=== PATIENT | female | born 1970 | race Caucasian/White ===

== ENCOUNTER 2016-10-02 17:46 | Emergency (ER) ==
--- NOTE | 2016-10-02 18:38 | PROVIDER DOCUMENTATION ---
Addendum entered and electronically signed by Mitchell Matute Scribe 10/02/16 19:30 : Progress - PLAN OF CARE/RESULTS Progress/Plan/Lab Results: Orders Category Date Time Status CHEST-2 VIEWS [RAD] Stat Exams 10/02/16 18:31 Taken CephALEXIN [Keflex] Med 10/02/16 19:16 Discontinued 500 mg PO NOW ONE Vital Signs - 24 hr 10/02/16 17:51 Temperature 99 F Pulse Rate 86 Respiratory 18 Rate Blood Pressure 112/63 O2 Sat by Pulse 99 Oximetry - XRAY XRAY: Bilateral XRAY Study: Chest XRAY Interpretation: NEGATIVE Original Note: HPI-General Adult - General Source: patient - History of Present Illness -Gen Adult Nature of Presenting Problems: 46 YOWF PRESENTS TO ED WITH C/O PT STATES SHE HAD SURGERY ON WEDNESDAY, AND WAS HOARSE WHEN SHE CAME OUT OF SURGERY. PT STATES SHE GOT BETTER ON WEDNESDAY, AND NOW STATES SHE HAS HOARSENESS AGAIN. Location of Pain/Injury: reports: none Pain Radiation: reports: no radiation Quality of Pain: reports: none Severity: reports: moderate Onset/Duration: reports: 2 days ago Timing: reports: still present Context/Activities at Onset: reports: light activity Modifying Factors: improves with: nothing Similar Symptoms Previously?: No Recently seen or treated by another doctor?: No <Mitchell Matute - Last Filed: 10/02/16 18:33> <Mello Forman - Last Filed: 10/02/16 19:18> - General Chief Complaint: Post Op Complaint Stated Complaint: POSS PNEUMONIA/POST OP Time Seen by Provider: 10/02/16 18:33 Allergies/Adverse Reactions: Patient Allergies Allergy/AdvReac Type Severity Reaction Status Date / Time metronidazole [From Flagyl] Allergy Mild RASH Verified 08/18/14 08:36 Metronidazole HCl * Allergy Mild RASH Verified 08/18/14 08:36 [From Flagyl] Penicillins Allergy Mild RASH Verified 08/18/14 08:36 red dye Allergy HIVES Verified 08/18/14 08:36 Home Medications: Home Medication List Medication Instructions Recorded Confirmed Last Taken Type Topiramate [Topamax] 200 mg PO BID 04/18/12 08/18/14 08/17/14 History Trazodone [Desyrel] 200 mg PO QHS 0908/18/14 08/17/14 History Bupropion HCl [Bupropion Xl] 300 mg PO DAILY 11/23/13 08/18/14 08/17/14 History Pantoprazole [Protonix] 40 mg PO DAILY@0700 11/23/13 08/18/14 08/17/14 History Promethazine [Phenergan] 25 mg NC Q6H PRN PRN 11/23/13 08/18/14 08/17/14 History Sumatriptan Succinate [Sumavel 6 mg SQ PRN PRN 11/23/13 08/18/14 08/17/14 History Dosepro] Tramadol [Ultram] 50 mg PO Q6H PRN PRN 11/23/13 08/18/14 08/17/14 History Meloxicam [Mobic] 15 mg PO DAILY 08/18/14 08/18/14 08/17/14 History Cephalexin [Keflex] 500 mg PO 4XDAY #20 capsule 10/02/16 Unknown Rx Review of Systems - Adult - REVIEW OF SYSTEMS - ADULT Constitutional: denies: chills, fever Eyes: reports: no symptoms reported Ears, Nose, Mouth & Throat: reports: no symptoms reported Cardiovascular: denies: chest pain, palpitations, syncope Respiratory: denies: cough, shortness of breath, wheezing Gastrointestinal: denies: abdominal pain, diarrhea, nausea, vomiting Genitourinary: reports: no symptoms reported Musculoskeletal: denies: back pain, neck pain Integumentary: reports: no symptoms reported Neurological: denies: dizziness/vertigo, headache/migraines, syncope Psychiatric: reports: no symptoms reported Endocrine: reports: no symptoms reported Hematologic/Lymphatic: reports: no symptoms reported Allergic/Immunologic: reports: no symptoms reported All Other Systems: Reviewed and Negative <Mitchell Matute - Last Filed: 10/02/16 18:33> Past History - Adult - PAST MEDICAL HISTORY-ADULT Review of Records: reports: Nursing Assessment Review, Medications Reviewed Neurological: reports: headaches/migraines - PRIOR SURGERIES/PROCEDURES Surgical/Procedure History: reports: breast, appendectomy, cholecystectomy, gastric bypass - IMMUNIZATION STATUS Childhood Immunizations: See Nurse Assessment Flu Vaccine: See Nurse Assessment - SOCIAL HISTORY Smoking: denies Substance Use: denies Alcohol Use Frequency: never Living Situation: family <Mitchell Matute - Last Filed: 10/02/16 18:33> Physical Exam-General - CONSTITUTIONAL General Appearance: alert, mild distress - EYES Eyes: PERRL/EOMI, pink conjunctivae - HEAD, EARS, NOSE, MOUTH & THROAT HENMT: normocephalic/atraumatic, moist mucous membranes - NECK Neck: non-tender, full range of motion, supple - RESPIRATORY Respiratory: chest non-tender, lungs clear, normal breath sounds - CARDIOVASCULAR Cardiovascular: normal peripheral pulses, regular rate, rhythm - GASTROINTESTINAL (ABDOMEN) Abdominal Exam: normal bowel sounds, non tender, soft - LYMPHATIC Lymphatic: no adenopathy - MUSCULOSKELETAL Back Exam: normal inspection, no CVA tenderness, no vertebral tenderness Extremity: normal range of motion, non-tender - SKIN Integumentary: normal color, normal turgor, warm/dry - NEUROLOGIC Neurologic: grossly normal - PSYCHIATRIC Psych/Mental Status: oriented x 3 <Mitchell Matute - Last Filed: 10/02/16 18:33> Departure <Mitchell Matute - Last Filed: 10/02/16 18:33> - Departure Time of Disposition Order: 19:18 Certified Medical Emergency: Emergent <Mello Forman - Last Filed: 10/02/16 19:18> - Departure DIAGNOSIS: Acute tracheitis with laryngitis Disposition: HOME 01 Condition: Stable Additional Instructions: ED Follow Up Instructions: You have been treated by a care provider in the Emergency Department. These instructions are being provided to you so you can have an understanding of how to care for yourself upon discharge. Upon discharge from the Emergency Department, you are responsible for making arrangements for follow-up care by a physician of your choice. Take all prescribed medications as directed. Return to the Emergency Department immediately for any new or worsening symptoms. You may call the Physician Referral phone number at [phone] to obtain a list of Physicians who are taking new patients. Prescriptions: Cephalexin [Keflex] 500 mg PO 4XDAY #20 capsule Referrals: Brandyn Carter MD [Primary Care Provider] - Attestation - Scribe Verification/Attestation Scribe:: Mitchell Matute Acting as Scribe for:: Mello Forman Scribe documention review:: This chart was documented by a scribe and accurately reflects the service the provider performed and the decisions made by the provider. <Mitchell Matute - Last Filed: 10/02/16 18:33> Physician Attestation
[2016-10-02] MEDS ORDERED: KEFLEX PO ONE (19:16)
[2016-10-02 19:35] VITALS: BP 99/66
--- NOTE | 2016-10-03 08:58 | Diag Imaging Result Document ---
PROCEDURE NAME: CHEST-2 VIEWS - 10/02/2016 CHEST, 2 VIEWS: COMPARISON: No comparison exam. FINDINGS: Heart size is normal. The lungs appear clear. There is no pleural effusion or pneumothorax identified. There is slight thoracic levoscoliosis noted. IMPRESSION: No evidence of acute disease.
== END 2016-10-02 19:35 | disposition home or self-care (01) ==
LOC: P.ED 17:46
DX: J04.2 Acute laryngotracheitis (principal); Z98.890 Other specified postprocedural states; R49.0 Dysphonia; R51 Headache; Z98.84 Bariatric surgery status; Z79.899 Other long term (current) drug therapy; Z79.1 Long term (current) use of non-steroidal anti-inflammatories (NSAID)
CPT/HCPCS: 71020; 99283